=== PATIENT | female | born 1960 | race Caucasian/White ===

== ENCOUNTER 2016-12-13 08:34 | Day surgery (SDC) | payer OTHER ==
[~2016-12-13 08:34] MED LIST: LACTATED RINGERS 1,000 ML IV SCH
[2016-12-13] MEDS ORDERED: LACTATED RINGERS 1,000 ML ONE (09:01)
[2016-12-13] MEDS ORDERED: IV START KIT ONE (09:01)
[2016-12-13] MEDS ORDERED: PROPOFOL 20 ML IV ONE (09:20)
[2016-12-13] MEDS ORDERED: FENTANYL 250 MCG/5 ML AMP ONE (09:20)
--- NOTE | 2016-12-18 11:45 | SURGPATH ---
[facility] [address] [place] [address] Patient Name: JASPER RICH MR#: [id number] : 1960 Gender: F Specimen #: [id number] Collected: 12/13/2016 Received: 12/15/2016 Reported: 12/18/2016 Submitting Phys: SIOMARA ABRAHAM Copy To Phys: [facility] [place] [place] Clinical History / Pre-Operative Diagnosis: LLQ PAIN; DIARRHEA; CHANGE IN BOWEL PATTERN; RULE OUT COLITIS Specimen Source / Surgical Procedure Performed: #1-CECAL BIOPSY; #2-SIGMOID AT 30 CM Interpretation: 1. CECUM, BIOPSY: - COLONIC MUCOSA SHOWING NO DIAGNOSTIC ABNORMALITIES. - NO EVIDENCE OF SIGNIFICANT INFLAMMATION OR MALIGNANCY. 2. COLON, SIGMOID 30 CM, BIOPSY: - COLONIC MUCOSA SHOWING NO DIAGNOSTIC ABNORMALITIES. - NO EVIDENCE OF SIGNIFICANT INFLAMMATION OR MALIGNANCY. Electronically Signed Out Ramu Fowler M.D., Ph.D. Gross Description: #1 The specimen is received in a formalin filled container labeled with the patient's name and "cecal biopsy". Two cueto-schrader biopsies are 0.5 and 0.6 cm. Totally embedded in cassette #1. #2 The specimen is received in a formalin filled container labeled with the patient's name and "sigmoid biopsy at 30 cm". Two cueto biopsies are 0.4 and 0.5 cm. Totally embedded in cassette #2. Karthikeyan Delgado Microscopic Description: 1. Examination of multiple levels from the cecum biopsy shows two fragments of histologically unremarkable colonic mucosa. The architecture is intact without evidence of distortion. There is no evidence of significant inflammation or malignancy. 2. Examination of multiple levels from the sigmoid colon biopsy at 30 cm shows two fragments of histologically unremarkable colonic mucosa. The architecture is intact without evidence of distortion. There is no evidence of significant inflammation or malignancy. 1: 84333 2: 86100 R19.7
== END 2016-12-13 10:45 | disposition home or self-care (01) ==
LOC: SDC 08:34
PROVIDERS: ATTEND Internal Medicine Gastroenterology
PROC: 0DBH8ZX Excision of Cecum, Via Natural or Artificial Opening Endoscopic, Diagnostic (ICD-10-PCS; principal; 2016-12-13)
PROC: 0DBN8ZX Excision of Sigmoid Colon, Via Natural or Artificial Opening Endoscopic, Diagnostic (ICD-10-PCS; 2016-12-13)
DX: K57.30 Diverticulosis of large intestine without perforation or abscess without bleeding (principal); K59.8 Other specified functional intestinal disorders; E03.9 Hypothyroidism, unspecified